=== PATIENT | female | born 1995 | race African-American/Black ===

== ENCOUNTER 2024-06-27 14:34 | Emergency (ER) | payer MEDICAID, OTHER ==
[~2024-06-27] VITALS: Ht 167.6 cm; Wt 85.0 kg
[2024-06-27 14:48] VITALS: O2SAT 100
[2024-06-27] MEDS: LIDOCAINE HCL 1% 20ML VIAL INFIL ONE (15:20)
[2024-06-27] MEDS ORDERED: SULF1TAB48 MT (15:52)
[2024-06-27] MEDS ORDERED: CEPH500T MT (15:52)
[2024-06-27] MEDS ORDERED: CLOB15GE2 TP (16:02)
[2024-06-27 16:06] VITALS: BP 125/70; PULSE 77; RESP 18; TEMP 36.78072; O2SAT 100
== END 2024-06-27 16:05 | disposition home or self-care (01) ==
LOC: ER 14:34
DX: L05.01 Pilonidal cyst with abscess (principal)
CPT/HCPCS: 10080; 99283; 81025; J3490; 10060

== ENCOUNTER 2024-06-29 19:30 | Emergency (ER) | payer OTHER ==
[~2024-06-29 19:30] MED LIST: CEPH500T MT; CLOB15GE2 TP; SULF1TAB48 MT
[2024-06-29 19:40] VITALS: PULSE 98; O2SAT 96
== END 2024-06-29 21:11 | disposition left against medical advice (07) ==
LOC: ER 19:30
DX: R68.89 Other general symptoms and signs (principal); Z53.21 Procedure and treatment not carried out due to patient leaving prior to being seen by health care provider